=== PATIENT | female | born 1995 | race African-American/Black ===

== ENCOUNTER 2016-11-02 04:43 | Emergency (ER) | payer MEDICAID ==
[~2016-11-02] VITALS: Ht 152.4 cm; Wt 119.1 kg
[~2016-11-02 04:43] MED LIST: PREN-88 PO
[2016-11-02 04:48] VITALS: BP 126/65
== END 2016-11-02 07:06 | disposition home or self-care (01) ==
LOC: ER 04:43
DX: N76.4 Abscess of vulva (principal)
CPT/HCPCS: 99281